=== PATIENT | male | born 1955 | race Caucasian/White ===

== ENCOUNTER 2019-07-12 16:41 | Observation (INO) ==
[2019-07-12] MEDS ORDERED: NS 1,000 ML IV ONE (17:08)
--- NOTE | 2019-07-12 17:10 | PROVIDER DOCUMENTATION ---
HPI-General Adult - General Chief Complaint: Male Stated Complaint: ERECTILE PROBLEMS Time Seen by Provider: 07/12/19 16:57 Source: patient Allergies/Adverse Reactions: Patient Allergies Allergy/AdvReac Type Severity Reaction Status Date / Time No Known Allergies Allergy Verified 05/26/17 08:23 Home Medications: Home Medication List Medication Instructions Recorded Confirmed Last Taken Type Aspirin 81 mg PO DAILY 05/26/17 06/02/17 05/26/17 07:00 History Tamsulosin HCl 0.4 mg PO DAILY 05/26/17 06/02/17 06/01/17 05:00 History Hydrocodone/Acetaminophen [Calvin 1 each PO Q4H PRN PRN #15 tablet 06/02/17 Unknown Rx 10-325 Tablet] - History of Present Illness -Gen Adult Nature of Presenting Problems: Pt. is 63 yom that presents with c/o an erection for 65 hours. He reports taking flomax and then during the night he became erect and it hasn't gone down in 65 hours. He denies any other complaints. Location of Pain/Injury: reports: genitalia. denies: none, head, face, mouth, neck, chest, upper extremity, hand(s), abdomen, back, pelvis, lower extremity, feet, upper body, lower body, generalized, other Pain Radiation: reports: no radiation. denies: arm(s), back, buttocks, chest, epigastric, feet, groin, jaw, flank (L), legs (lower), LLQ, LUQ, neck, periumbilical, flank (R), RLQ, RUQ, shoulder(s), scapula, scrotal, sternal notch, suprapubic, legs (upper), urethral, vaginal, other Quality of Pain: reports: aching. denies: burning, pressure, tightness Severity: reports: severe. denies: mild, moderate Onset/Duration: reports: gradual, other (65 hours) Timing: reports: still present, constant. denies: improving, intermittent, getting worse Context/Activities at Onset: reports: none. denies: light activity, moderate activity, vigorous activity, recent emotional stress, recent physical stress, recent trauma history, possible bad food, cold exposure, eating, out of country travel, rest, sleep, sexual activity, other Modifying Factors: improves with: nothing Associated Symptoms: reports: genitourinary problems. denies: denies symptoms, anxiety, arm pain, back/neck pain, chest pain, constipation, cough, diaphoresis, diarrhea, dizziness, EENT symptoms, fatigue, fever/chills, headaches, heartburn, joint pain, loss of appetite, malaise, muscle aches, sinus congestion/drainage, nausea, rash, seizure, shortness of breath, sensory/motor loss, pain with inspiration, swelling/mass in abdomen, syncope, vomiting, weakness, trouble walking, other Similar Symptoms Previously?: Yes Recently seen or treated by another doctor?: No Review of Systems - Adult - REVIEW OF SYSTEMS - ADULT Constitutional: reports: no symptoms reported Eyes: reports: no symptoms reported Ears, Nose, Mouth & Throat: reports: no symptoms reported Cardiovascular: reports: no symptoms reported Respiratory: reports: no symptoms reported Gastrointestinal: reports: no symptoms reported Genitourinary: reports: see HPI, other (priapism for 65 hours after taking flomax). denies: discharge, hematuria, hesitency Musculoskeletal: reports: no symptoms reported Integumentary: reports: no symptoms reported Neurological: reports: no symptoms reported Psychiatric: reports: no symptoms reported Past History - Adult - PAST MEDICAL HISTORY-ADULT Review of Records: reports: Old Records Reviewed, Nursing Assessment Review, Medications Reviewed, Social history reviewed & non-contributory. - IMMUNIZATION STATUS Childhood Immunizations: See Nurse Assessment Flu Vaccine: See Nurse Assessment - FAMILY HISTORY Family History: reviewed, not pertinent Physical Exam-General - PHYSICAL EXAM-ADULT Initial Vital Signs Reviewed: Yes - CONSTITUTIONAL General Appearance: alert, moderate distress, thin. negative: anxious, slow to respond, obtunded, combative - EYES Eyes: PERRL/EOMI, pink conjunctivae - HEAD, EARS, NOSE, MOUTH & THROAT HENMT: normocephalic/atraumatic, moist mucous membranes - NECK Neck: non-tender, full range of motion, supple, normal inspection - RESPIRATORY Respiratory: lungs clear, normal breath sounds - CARDIOVASCULAR Cardiovascular: normal peripheral pulses, regular rate, rhythm, no edema - GASTROINTESTINAL (ABDOMEN) Abdominal Exam: normal bowel sounds, non tender, soft - GENITOURINARY Male Genitalia: other (Priapism) Rectal Exam: deferred Hemoccult Exam: deferred - LYMPHATIC Lymphatic: no adenopathy - MUSCULOSKELETAL Back Exam: normal inspection, no CVA tenderness, no vertebral tenderness Extremity: normal range of motion, non-tender, normal gait, normal inspection Peripheral Pulses: radial (R): 2+, radial (L): 2+ - SKIN Integumentary: normal color, normal turgor, warm/dry - NEUROLOGIC Neurologic: grossly normal, no motor/sensory deficits - PSYCHIATRIC Psych/Mental Status: normal mood/affect, normal thought content, normal thought process, oriented x 3. negative: anxious, paranoid, tearful Progress - PLAN OF CARE/RESULTS Progress/Plan/Lab Results: Vital Signs - 8 hr 07/12/19 16:48 Temperature 97.7 F Pulse Rate 93 H Respiratory Rate 16 Blood Pressure 176/94 O2 Sat by Pulse Oximetry 99 Orders Category Date Time Status Oxygen Therapy- ED Nursing DIRECTED Care 07/12/19 17:08 Active Saline Loc NOW Care 07/12/19 17:07 Active CBC WITH ELECTRONIC DIFF [HEME] Stat Lab 07/12/19 17:07 Uncollected COMPREHENSIVE METABOLIC PANEL [CHEM] Stat Lab 07/12/19 17:07 Uncollected PROTIME WITH INR [COAG] Stat Lab 07/12/19 17:07 Uncollected PTT [COAG] Stat Lab 07/12/19 17:07 Uncollected 0.9% Sodium Chloride Inj [Ns] 1,000 ml Med 07/12/19 17:08 Active IV 999 mls/hr Dr. Mcnamara at bedside. Laboratory Tests 07/12/19 07/12/19 07/12/19 17:28 17:28 17:28 WBC 15.44 H RBC 4.52 L Hgb 13.9 L Hct 39.8 L MCV 88.1 MCH 30.8 MCHC 34.9 RDW Std Deviation 14.8 H Plt Count 311 MPV 8.5 Immature Gran % (Auto) 0.3 Neut % (Auto) 76.5 H Lymph % (Auto) 13.1 L [place] % (Auto) 9.3 Eos % (Auto) 0.5 Baso % (Auto) 0.3 Immature Gran # (Auto) 0.05 H Neut # (Auto) 11.82 H Lymph # (Auto) 2.02 [place] # (Auto) 1.44 H Eos # (Auto) 0.07 Baso # (Auto) 0.04 PT 13.0 INR 0.97 PTT (Actin FS) 30.9 Sodium 133 L Potassium 4.3 Chloride 94 L Carbon Dioxide 23 L Anion Gap 16 BUN 4 L Creatinine 0.5 L Estimated GFR/1.73 m2 > 60 BUN/Creatinine Ratio 8 Glucose 94 Calculated Osmolality 263 Calcium 9.0 Total Bilirubin 0.78 AST 25 ALT 29 Alkaline Phosphatase 64 Total Protein 7.8 Albumin 4.8 Globulin 3.0 Albumin/Globulin Ratio 1.6 Dr. Mcnamara states he will have to take the patient to surgery. Result Diagrams: 07/12/19 17:28 07/12/19 17:28 - CONSULTS/PCP/HOSPITALIST Notification #1 *Consult/PCP/Hospitalist*: Dr. Mcnamara Time Discussed: 17:09 Reason/Comments: Consult Consult Disposition: Will see in ED Departure - Departure Date of Disposition Decision: 07/12/19 Time of Disposition Decision: 18:35 DIAGNOSIS: Priapism Disposition: ADMITTED INPATIENT 09 Certified Medical Emergency: Emergent Condition: Stable Referrals and Follow-Ups: Jenny Marmolejo MD [Primary Care Provider] - - Critical Care Note This patient required my direct & personal management of CC.: No Attestation - Physician/ RENU Attestation Patient care was provided by Advanced Practice Provider:: Yes Advanced Practice Provider:: Aleksey Escalona Advanced Practice Provider documentation review:: The Mid-level provider documentation, treatment plan and medical decision making was reviewed by the physician who agrees with all treatment and medical decision making by the P. The physician spent face to face time with patient:: No Advanced Practice Provider documentation review:: Supervising physician onsite and consulted in the evaluation and care of this patient. The physician did not have a face to face encounter with the patient.
[2019-07-12] MEDS ORDERED: BRETHINE SUBQ ONE (17:16)
[2019-07-12] MEDS ORDERED: NEO SYNEPHRINE IV ONE ×2 (17:30→17:46)
[2019-07-12] MEDS ORDERED: SODIUM CHLORIDE 0.9% IV ONE ×2 (17:30→17:46)
[2019-07-12] MEDS ORDERED: XYLOCAINE 1% INJ ONE (17:36)
[2019-07-12 17:40] LABS: BASO# 0.04 X1000 (0.0-0.2); BASO% 0.3 % (0.0-0.8); EOS# 0.07 X1000 (0.0-0.7); EOS% 0.5 % (0.0-10.0); HEMATOCRIT 39.8 % (42.0-52.0); HEMOGLOBIN 13.9 g/dL (14.0-18.0); IMM GRAN# 0.05 X1000 (0.0-0.04); IMM GRAN% 0.3 % (0.0-0.5); LYMPH# 2.02 X1000 (1.2-3.4); LYMPH% 13.1 % (20.5-51.1); MCH 30.8 PG (27-31); MCHC 34.9 g/dL (33-37); MCV 88.1 FL (81-99); MONO# 1.44 X1000 (0.11-0.59); MONO% 9.3 % (1.7-9.3); MPV 8.5 FL (7.4-10.4); NEUT# 11.82 X1000 (1.4-6.5); NEUT% 76.5 % (42.2-75.2); PLT 311 X1000 (130-400); RBC 4.52 XMIL (4.7-6.1); RDW 14.8 % (11.5-14.5); WBC 15.44 X1000 (4.8-10.8)
[2019-07-12] MEDS ORDERED: XYLOCAINE 1% ONE (17:41)
[2019-07-12 17:52] LABS: INR 0.97; PTT 30.9 Seconds (22.3-41.8)
[2019-07-12 17:57] LABS: AGAP 16; ALB/GLOB RATIO 1.6; ALBUMIN 4.8 g/dL (3.5-5.0); ALKALINE PHOSPHATASE 64 U/L (32-122); BUN 4 mg/dL (8-22); CHLORIDE 94 mmol/L (98-107); COSMO 263; CREATININE 0.5 mg/dL (0.7-1.2); ESTIMATED GFR > 60; GLUCOSE 94 mg/dL (70-104); GOT 25 U/L (10-34); GPT 29 U/L (10-44); POTASSIUM 4.3 mmol/L (3.5-5.1); SODIUM 133 mmol/L (136-145); TCO2 23 mmol/L (25-35); TOTAL BILIRUBIN 0.78 mg/dL (0.20-1.00); TOTAL PROTEIN 7.8 g/dL (6.3-8.3)
[2019-07-12] MEDS ORDERED: DIPRIVAN 1% ONE (18:31)
[2019-07-12] MEDS ORDERED: XYLOCAINE-MPF 2% ONE (18:32)
[2019-07-12] MEDS ORDERED: KEFZOL 2 GM/D5W 2 GM/50 ML IVPB IV ONE (18:43)
[2019-07-12] MEDS ORDERED: KEFZOL 2 GM/D5W 2 GM/50 ML IVPB ONE (18:50)
[2019-07-12] MEDS ORDERED: MARCAINE 0.5% PF ONE ×2 (18:50→19:21)
[2019-07-12] MEDS ORDERED: FENTANYL ONE ×2 (19:16→19:31)
[2019-07-12] MEDS ORDERED: ROBINUL ONE (19:25)
[2019-07-12] MEDS ORDERED: QUELICIN (DOSE) ONE (19:26)
[2019-07-12] MEDS ORDERED: NEO-SYNEPHRINE ONE (19:26)
[2019-07-12] MEDS ORDERED: SODIUM CHLORIDE 0.9% 10 ML ONE (19:26)
[2019-07-12 19:51] LABS: URINE SOURCE CATH
[2019-07-12 20:08] LABS: BILIRUBIN URINE NEGATIVE (NEGATIVE); BLOOD URINE TRACE (NEGATIVE); COLOR STRAW; GLUCOSE URINE NEGATIVE (NEGATIVE); KETONE URINE NEGATIVE (NEGATIVE); LEUKOCYTES URINE SMALL (NEGATIVE); NITRITE URINE NEGATIVE (NEGATIVE); PROTEIN URINE NEGATIVE (NEGATIVE); SP GRAVITY URINE 1.003; TURBIDITY URINE CLEAR (CLEAR); UROBILINOGEN URINE NORMAL (NORMAL)
[2019-07-12 20:09] LABS: UR EPITHELIAL CELLS <10 /HPF (<10); URINE BACTERIA NEGATIVE /HPF; URINE RBC <10 /HPF (<10); URINE WBC <10 /HPF (<10)
[2019-07-12 20:11] LABS: UR AMPHETAMINES QUAL NONE DETECTED (NONE DETECT); UR BARBITUATES QUAL NONE DETECTED (NONE DETECT); UR BENZODIAZEPIN QUAL NONE DETECTED (NONE DETECT); UR CANNABINOIDS QUAL NONE DETECTED (NONE DETECT); UR COCAINE QUAL NONE DETECTED (NONE DETECT); UR METHADONE QUAL NONE DETECTED (NONE DETECT); UR OPIATES QUAL NONE DETECTED (NONE DETECT); UR OXYCODONE QUAL NONE DETECTED (NONE DETECT); UR PCP QUAL NONE DETECTED (NONE DETECT)
[2019-07-12 20:15] LABS: I-STAT BE -5 mmoll (-2-3); I-STAT GLUCOSE 88 mg/dL (70-105); I-STAT HEMOGLOBIN 11.6 g/dL (11.5-17.5); I-STAT K 3.8 mmoll (3.5-4.9); I-STAT SODIUM 136 mmoll (138-146); I-STAT TCO2 23 mmoll (23-27); I-STAT pH 7.327 (7.350-7.450)
[2019-07-12] MEDS ORDERED: NS 1,000 ML ONE (20:28)
[2019-07-12 21:49] LABS: BASO# 0.03 X1000 (0.0-0.2); BASO% 0.2 % (0.0-0.8); EOS# 0.04 X1000 (0.0-0.7); EOS% 0.3 % (0.0-10.0); HEMATOCRIT 35.4 % (42.0-52.0); HEMOGLOBIN 12.2 g/dL (14.0-18.0); IMM GRAN# 0.05 X1000 (0.0-0.04); IMM GRAN% 0.3 % (0.0-0.5); LYMPH# 1.39 X1000 (1.2-3.4); LYMPH% 8.9 % (20.5-51.1); MCH 30.8 PG (27-31); MCHC 34.5 g/dL (33-37); MCV 89.4 FL (81-99); MONO# 1.22 X1000 (0.11-0.59); MONO% 7.8 % (1.7-9.3); MPV 8.8 FL (7.4-10.4); NEUT# 12.83 X1000 (1.4-6.5); NEUT% 82.5 % (42.2-75.2); PLT 285 X1000 (130-400); RBC 3.96 XMIL (4.7-6.1); RDW 14.8 % (11.5-14.5); WBC 15.56 X1000 (4.8-10.8)
[2019-07-12] MEDS ORDERED: NORCO-7.5 PO PRN (22:11)
[2019-07-12] MEDS ORDERED: MORPHINE IV PRN (22:12)
[2019-07-12] MEDS ORDERED: ZOFRAN IV PRN (22:13)
[2019-07-12] MEDS ORDERED: NS 1,000 ML IV SCH (22:15)
--- NOTE | 2019-07-13 01:43 | HISTORY AND PHYSICAL ---
DATE OF CONSULTATION: 07/12/2019 CHIEF COMPLAINT: Prolonged erection. HISTORY OF PRESENT ILLNESS: Mr. Schaffer is a 63-year-old who presents to the emergency room complaining of 65 hours of an erection. The patient states that he took Flomax on Tuesday night and went to bed. When we awoke on Tuesday morning to urinate at 1 a.m. that he had an erection. The patient states this never improved. He says the erection has been present for over 65 hours now. He states that he occasional will have erections that last for 3 to 5 hours, but they typically improve spontaneously. He has had persistent pain of his penis and he denies any discoloration of the phallys. He denies any illicit drug use, PD-5 inhibitors, history of blood conditions, or trauma. He states that he often will have morning erections that last for several hours, but this is the longest. He denies any issues with erectile dysfunction previously. He denies any difficulty with urination with his erection. He felt like it would get better with ice water as well as application of ice and urinating, but it has not. Patient was seen previously by Dr. Garrison for right hydrocele and elevated PSA. He underwent a right hydrocelectomy in 2017 and it was recommended that he have a prostate biopsy for a PSA of 7, but he never returned to clinic. Patient is a heavy alcohol drinker and states that he drinks 6 beers a day. PAST MEDICAL HISTORY: 1. History of hydrocele. 2. Benign prostatic hypertrophy. 3. History of elevated PSA. PAST SURGICAL HISTORY: Hydrocelectomy. ALLERGIES: No known drug allergies. HOME MEDICATIONS: Flomax. REVIEW OF SYSTEMS: A 12-point review of systems performed. All pertinent positives and negatives in HPI. SOCIAL HISTORY: Denies illicit drug use. Endorses 1 pack a day of smoking. Says he drinks a 6 pack of beer daily. PHYSICAL EXAMINATION: Vital Signs: Temperature 97.7 degrees, heart rate 93, blood pressure 176/94, oxygen saturation 99% on room air. General: Mild distress. Alert and oriented x3. HEENT: Normocephalic, atraumatic. Pupils equal, round, reactive to light. Respiratory: Good respiratory effort without audible wheezing or rales. Abdomen: Soft, nontender, nondistended. Cardiovascular: Regular rhythm. No evidence of lower extremity edema. Genitourinary: No suprapubic tenderness. The patient has an erect phallus with firm corporal bodies all the way to the glans. These are quite hard. The patient has tenderness to palpation of his penis. Orthotopic urethral meatus. Testicles palpated without masses and symmetrical bilaterally. Digital rectal exam was performed, which showed an enlarged prostate which felt normal with no obvious masses or asymmetry. No nodules felt. Musculoskeletal: Moving all extremities. Neurologic: Gross motor and sensory intact. Skin: No skin lesions or rashes. LABS: White blood cell count 15.4, hemoglobin 13.9, hematocrit 39.8, platelets 311,000. PT 13, INR 0.97, PTT 30.9. Sodium 133, potassium 4.3, chloride 94, bicarbonate 23, BUN 4, creatinine 0.5. Glucose 94. AST 25, ALT 29. The patient has been unable to urinate here in the hospital. ASSESSMENT AND PLAN: Mr. Schaffer is a 63-year-old who presents for evaluation of prolonged erection. He has been erect for over 65 hours now. I talked with the patient. He has taken Flomax and feels like this may have caused it. He states he often will have morning erections, but this is the longest. He states that he has not had issues with erectile dysfunction previously. Talked with the patient, I recommended a trial of irrigation of his priapism and injection of phenylephrine. Discussed the risks including changes in blood pressure, decreased heart rate, bleeding, infection, inability to decrease his erection, and need for surgical intervention. After a discussing risks, preformed a time-out with the nurse. I sterilized the area using alcohol swabs, and then injected lidocaine 5 mL into each side at the base of the penis at the 3 o'clock and 9 o'clock positions. Once this was done, a 14- gauge needle was inserted and dark blood returned. I was able to squeeze a large amount of blood out of both sides. Then, using this needles, I injected phenylephrine starting with 1 mL, injecting every 5 minutes. Injected up to 6 mL of 100 mcg/mL of phenylephrine and the patient remained in erect state. I did fill that I had gotten him slightly softer, however, he just rapidly returned with resolution of his penile pain. After multiple attempts to irrigate his priapism, I talked with him and recommended consideration for surgical intervention. I told him that due to the prolonged erection, he is at high risk for erectile dysfunction at baseline, that I would recommend performing a shunt for his priapism. I discussed this procedure with him, including making incision at the end of the penis and passing a dilator down the corpora to try to create a shunt between the corporal cavernosa and corpus spongiosum to allow return of normal blood. I discussed the risk of prolonged erectile dysfunction, damage to erectile bodies, inability to decrease his erection and postoperative pain. The patient asked many questions and these were addressed with him. Ultimately decision, the patient would like to proceed with surgical intervention. The patient's is at bedside, who agrees. We will plan to obtain a urinalysis from Aguilera catheter specimen while asleep. cc: James Mcnamara MD MTDD
[2019-07-13] MEDS ORDERED: KEFZOL 1 GM/D5W 1 GM/50 ML IVPB IV SCH (03:00)
--- NOTE | 2019-07-13 05:25 | OPERATIVE NOTE ---
PROCEDURE DATE: 07/12/2019 PREOPERATIVE DIAGNOSIS: Prolonged erection. POSTOPERATIVE DIAGNOSIS: Prolonged erection. PROCEDURES: 1. Drainage of priapism. 2. T-shunt formation with corpora cavernosal glandular shunt. SURGEON: James Mcnamara MD CARPET WEAVER: None. COMPLICATIONS: None. ESTIMATED BLOOD LOSS: 50 mL. DRAINS: A 16-Citizen [place] Aguilera catheter. COMPLICATIONS: None. SPECIMENS OBTAINED: Urine for urinalysis and toxicology screen. Arterial Blood Gas from penis. ANESTHESIA: Endotracheal intubation. INDICATIONS FOR PROCEDURE: Mr. Schaffer is a 63-year-old who presented to the emergency room this afternoon complaining of 65 hours of prolonged erection. The patient states that he took Flomax several days ago, and he developed an erection lasting until today. The erection never waned and is leading to pain. The patient underwent attempted bedside drainage in the emergency room with phenylephrine, however, had recurrence of his priapism after injection. In talking with him, I recommended formation of a shunt to adequately drain his priapism. Discussed the risks, benefits, and alternatives of procedure. Discussed risks of bleeding, persistent prolonged erection with need for secondary procedure, inability to obtain erections afterwards due to length of his prolonged erection, damage to the urethra and surrounding structures, and chronic pain. After thorough discussion with the patient and his , he elected to proceed. DESCRIPTION OF PROCEDURE: After informed consent was obtained, patient was brought to the operating room, and placed on the operating table in supine position. The patient received preoperative antibiotics and underwent endotracheal intubation. The patient was then prepped and draped in usual sterile fashion. A preoperative time-out was performed with all parties in agreement, including anesthesia, and surgical nursing staff. At which point 0.5% Marcaine was obtained, and a penile block was performed circumferentially around the base of the penis. The patient had undergone prior incision and drainage in the emergency room, and had some edema at the base of the penis with some bruising. Next a 16[place]Citizen [place] Aguilera catheter was inserted through the urethra and into the bladder with return of clear, yellow urinary output. 10 mL sterile water was placed within the balloon, and placed to gravity. At which point an 11 blade scalpel was obtained, and approximately 5 to 10 mm from the urethral meatus was inserted in the vertical position going through the corpus spongiosum and the glans into the corpus cavernosum, and then rotated 90 degrees lateral and then pulled outward to create a T shunt. A large amount of blood was able to be returned. This was dark and ultimately became much more bright red after irrigating the corpora. This allowed for return of normal blood supply to the penis, and it became more flaccid. This was irrigated with normal saline to remove any blood clots. Hegar dilators starting with a 4 and increasing up to 6 was used to dilate the area to allow for adequate drainage from the corpus cavernosum. Good return of red blood was obtained, and the continue irrigation was performed which allowed the blood to continue to drain appropriately. No large clots were seen. The patient had maintenance of a flaccid penile state. Fifteen minutes were spent irrigating, the penis remained flaccid. He was then watched for approximately 15 minutes, and an ABG was obtained which returned with a PO2 of 190, pCO2 of 41, and O2 of 100% with a pH of 7.3. The patient had returned a regular blood supply to the penis at which point 3-0 chromic was used to close the incision site. Good hemostasis was obtained. Bacitracin was applied to the wound, and Xeroform was attached over top of this. Kerlix Anaid was wrapped around the penis. The patient was then extubated, awoken, and was taken to recovery. In recovery, patient was checked 30 minutes after procedure and continued to be remain in a flaccid state. The patient will be admitted overnight with plan to discharge tomorrow after catheter removal. cc: MD VANNA Mireles
[2019-07-13 07:27] VITALS: BP 146/84
[2019-07-13] MEDS ORDERED: PERIDEX MT SCH (09:00)
--- NOTE | 2019-07-13 10:21 | PROGRESS NOTE ---
DATE: 07/13/2019 SUBJECTIVE: Postoperative day 1 from the corpora cavernosal glandular shunt after attempted bedside irrigation of priapism. The patient presented to the emergency room with 65 hours of prolonged erection. The patient underwent a irrigation injection of phenylephrine in the emergency room, which did not allow for resolution of his erection. The patient was taken to the operating room last night and has remained flaccid after creating a corpora cavernosal glandular shunt. The patient has been doing well. He denies any pain this morning. The patient has some fullness of his penis he says, but is not uncomfortable. The patient's Aguilera catheter was removed this morning. He has already voided. OBJECTIVE: Vital signs temperature 99.1 degrees, heart rate 89, blood pressure 146/84, oxygen saturation 96% on room air. General: No acute distress. Resting comfortably in bed. Alert and oriented x3. Respiratory: Good respiratory effort without audible wheeze, rales. Abdomen: Soft, nontender, nondistended. no suprapubic tenderness. No CVA tenderness. Dressing in place overlying the penis. The patient has slight fullness of the penis, but no rigidity. The glans is soft. Bruising present at the base of the penis and into the scrotum. The shunt site on left glans is covered with dressing with no active bleeding. Urethral meatus is normal. LABS: White blood cell count 15.5, hemoglobin 12.2, hematocrit 35.4, PSA 3.22. ASSESSMENT/PLAN: Mr. Garcia is a 63-year-old with history of alcohol dependence and BPH, who presents to the hospital with 65 hours of a prolonged erection. The patient underwent phenylephrine injection and irrigation in the emergency room yesterday. However, was unable to return his priapism to normal state and was taken the operating last night for corpora cavernosal glandular shunt which helped to resolve his erection. An ABG was obtained at the end of procedure, which showed good blood supply to the penis. The patient's penis has remained non erect state this morning. He does have some fullness and some bruising at the base which is normal. Discussed with him that he needs to significantly cut back his drinking and recommended abstinence. The patient should hold his Flomax. Will plan to give him gabapentin to see if this helps decrease his risk of erections in postoperative state. He does describe at home what sounds like possible shuttering priapism where he will have erections in the morning and has had some erections last up to 4 hours. If the patient continues to have issues may have to consider Cialis or some other therapy to treat him for this. I told him that his chances of erectile dysfunction are very high after a prolonged erection as well as undergoing interventions. I told him to abstain from intercourse for 2 weeks and stop taking Flomax. Recommended follow up in clinic in 1 week to re-evaluate the swelling and to discuss further management. The patient expressed understanding. We will plan to discharge later today and follow up in 1 week. cc: James Mcnamara MD MTDD
== END 2019-07-13 08:44 | disposition home or self-care (01) ==
LOC: 4N 16:41 → ED 16:41 → 4N 16:42
PROVIDERS: ADMIT Urology; ATTEND Urology